=== PATIENT | male | born 1940 | race Two or more races ===

== ENCOUNTER 2018-12-07 09:18 | Inpatient (IN) | payer MEDICARE ==
[~2018-12-07] VITALS: Ht 188 cm; Wt 74.8 kg
--- NOTE | 2018-12-07 09:30 | NUR ---
DOC [place] 102 FROM [facility] FOR ALOC/Fever BS-[id number] LKWT yesterday". PT O2 SAT AT 69% ON ROOM AIR IN THE FACILITY UPON PARAMEDICS ARRIVAL, PT CAME IN ON NON-REBREATHER MASK AT 15LPM, O2 SAT 93%, TO ER BED 8, PT AROUSABLE BY PAINFUL STIMULI. DR VINSON AT BEDSIDE, HOOKED TO NETWORK SECURITY CONSULTANT, IVP STARTED AT R AND L FOREARM 18G, BLOOD DRAWN AND SENT TO LAB. NOTED W PRIMITIVO CATHETER ON R CHEST. COOLING MEASURES DONE.
[2018-12-07 09:35] LABS: BASOPHILS # (AUTO) 0.4 /CMM (0.0-0.2); BASOPHILS % (AUTO) 2.3 % (0.0-2.0); EOSINOPHILS % (AUTO) 0.1 % (0.0-6.0); HEMATOCRIT 24 % (39-51); HEMOGLOBIN 7.4 g/dL (13.5-17.5); LYMPHOCYTES # (AUTO) 0.9 /CMM (0.8-4.8); MEAN CORPUSCULAR HGB CONC 30 g/dl (31.0-36.0); MEAN CORPUSCULAR VOLUME 101 fL (80-96); MONOCYTES # (AUTO) 0.7 /CMM (0.1-1.30); MONOCYTES % (AUTO) 4.3 % (2.0-12.0); NEUTROPHILS # (AUTO) 13.7 /CMM (1.8-8.9); NEUTROPHILS % (AUTO) 87.3 % (43.0-81.0); PLATELET COUNT (AUTO) 224 /CMM (150-450); RED BLOOD CELL COUNT(AUTO) 2.41 MIL/uL (4.5-6.0); WHITE BLOOD COUNT (AUTO) 15.6 K/uL (4.3-11.0)
[2018-12-07] MEDS ORDERED: ACETAMINOPHEN 650 MG/SUPP.RECT RC ONE ×2 (09:39→10:00)
[2018-12-07 09:40] LABS: CALCIUM, SERUM 7.9 mg/dL (8.5-10.1); CARBON DIOXIDE 25 mmol/L (21-32); CHLORIDE 104 mmol/L (98-107); CREATININE 2.6 mg/dL (0.6-1.3); GLUCOSE 123 mg/dL (74-106); POTASSIUM 3.7 mmol/L (3.5-5.1); SODIUM SERUM 141 mmol/L (136-145); UREA NITROGEN, BLOOD 20 mg/dL (7-18)
[2018-12-07] MEDS ORDERED: BISA10SU8 RC (09:43)
[2018-12-07] MEDS ORDERED: FINA5TAB11 PO (09:43)
[2018-12-07] MEDS ORDERED: CYAN10009 PO (09:43)
[2018-12-07] MEDS ORDERED: PANT40TA4 PO (09:43)
[2018-12-07] MEDS ORDERED: POLY15DR40 EACHEYE (09:43)
[2018-12-07] MEDS ORDERED: AMIN30LI27 PO (09:43)
[2018-12-07] MEDS ORDERED: POLY17PO4 PO (09:43)
[2018-12-07] MEDS ORDERED: ASPI-1169 PO (09:43)
[2018-12-07] MEDS ORDERED: ACET-868 PO (09:43)
[2018-12-07] MEDS ORDERED: TICA90TA PO (09:43)
[2018-12-07] MEDS ORDERED: BLOO-668 IN (09:43)
[2018-12-07] MEDS ORDERED: CARV12.52 PO (09:43)
[2018-12-07] MEDS ORDERED: GABA-534 PO (09:43)
[2018-12-07] MEDS ORDERED: MAGN400O6 PO (09:43)
[2018-12-07] MEDS ORDERED: ATOR40TA PO (09:43)
[2018-12-07] MEDS ORDERED: ASCO500T9 PO (09:43)
[2018-12-07] MEDS ORDERED: SACC250C PO (09:43)
[2018-12-07] MEDS ORDERED: DOCU-141 PO (09:43)
[2018-12-07] MEDS ORDERED: FOLI0.8T23 PO (09:43)
[2018-12-07] MEDS ORDERED: ACET-2605 PO ×2 (09:43)
[2018-12-07] MEDS ORDERED: INSU100V11 SQ (09:43)
[2018-12-07] MEDS ORDERED: NA P133E RC (09:43)
[2018-12-07 09:46] LABS: ALANINE AMINOTRANSFERASE 22 U/L (12-78); ALKALINE PHOSPHATASE 240 U/L (46-116); ASPARTATE AMINOTRANSFERASE 38 U/L (15-37); BILIRUBIN,DIRECT 0.3 mg/dL (0.0-0.2); BILIRUBIN,TOTAL 0.7 mg/dL (0.2-1.0); TOTAL PROTEIN, SERUM 6.3 g/dL (6.4-8.2)
[2018-12-07 09:52] LABS: ALBUMIN 1.2 g/dL (3.4-5.0)
--- NOTE | 2018-12-07 10:12 | NUR ---
got bed 323-1
--- NOTE | 2018-12-07 10:57 | NUR ---
REPORT GIVEN TO CHERI RON OF TELE UNIT
--- NOTE | 2018-12-07 11:15 | NUR ---
[facility]ED [facility]. DRAG CAR RACER WAS PAGED
[2018-12-07] MEDS ORDERED: VANCOMYCIN 1 GM in IV D5W 250 ML IV ONE (11:30)
[2018-12-07] MEDS ORDERED: VANCOMYCIN 1 GM VIAL ONE (11:31)
[2018-12-07] MEDS ORDERED: PIPERACILLIN /TAZOBACTAM 3.375 G VIAL IV ONE (11:31)
[2018-12-07] MEDS ORDERED: PIPERACILLIN /TAZOBACTAM 3.375 G in IV D5W 50 ML IV SCH (12:00)
--- NOTE | 2018-12-07 12:15 | NUR ---
RN MS OPENING NOTES Patient received at this time, patient's Right and Left FA #[id number] IV patent, IJ permacath in place. vital signs stable, patient has no s/s of pain. Patient's photo of wounds taken, and printed. In patients chart. Bed at the lowest setting, call light within reach. Patient is with family member bed side.
[2018-12-07] MEDS ORDERED: DEXTROSE 50%-WATER 50 ML DISP.SYRIN IV PRN (14:30)
[2018-12-07] MEDS ORDERED: ACETAMINOPHEN 325 MG TABLET PO PRN (14:30)
[2018-12-07] MEDS ORDERED: Z GUARD REMEDY 2 OZ OINT TP PRN (14:30)
[2018-12-07] MEDS ORDERED: HYDROCODONE/APAP 5/325MG 1 EACH TABLET PO PRN (14:30)
[2018-12-07] MEDS ORDERED: MAGNESIUM HYDROXIDE 30 ML UDC PO PRN (14:30)
[2018-12-07] MEDS ORDERED: MORPHINE SULFATE INJ 2 MG/ML DISP.SYRIN IV PRN (14:30)
[2018-12-07] MEDS ORDERED: MAG HYDROX/AL HYDROX/SIMETH 30 ML UDC PO PRN (14:30)
[2018-12-07] MEDS ORDERED: ONDANSETRON HCL/PF 4 MG/2 ML VIAL IVP PRN (14:30)
[2018-12-07] MEDS ORDERED: ZOLPIDEM TARTRATE 5 MG TABLET PO PRN (14:30)
--- NOTE | 2018-12-07 15:12 | NUR ---
RN MS NOTES Patient's family refuses carey catheter at this time. Patient's family stated that they are not comfortable at this time.
[2018-12-07] MEDS ORDERED: VANCOMYCIN POST DIALYSIS 500MG IV PRN ×2 (15:30)
[2018-12-07] MEDS ORDERED: FEE PK DOSING 1 MIN EA MC ONE (15:31)
[2018-12-07 16:00] VITALS: BP 94/51
[2018-12-07] MEDS: IV D5/0.45 NACL 1,000 ML IV PRN (16:38)
[2018-12-07] MEDS: FAMOTIDINE/PF INJ 20 MG/2 ML VIAL IV SCH (16:42)
[2018-12-07] MEDS: BLOOD SUGAR DIAGNOSTIC 1 EACH STRIP IN SCH (17:07)
[2018-12-07] MEDS: INSULIN REGULAR, HUMAN 100 UNIT/ML 3 ML VIAL SQ PRN (17:13)
--- NOTE | 2018-12-07 17:55 | NUR ---
RN MS CLOSING NOTES Patient remains on 4L nasal cannula, no sob noted. patient remains a/o x 0. No s/s of pain at this time. Patient remains with left and right forearm IV #18, patent. Patients family member refused insertion of dr calin carey. Bed at the lowest setting, call light within reach, fall precautions in place, will give report to NILS RN for MARY bedside.
--- NOTE | 2018-12-07 19:50 | NUR ---
MS/RN OPENING NOTES RECEIVED PATIENT IN BED, RESTING COMFORTABLY IN BED, PATIENT ABLE TO RESPOND WITH TOUCH BUT REQUIRE EXTENSIVE ASSISTANCE WITH ALL NEEDS. CAN OPEN EYES. ON DIAPER,ON NPO STATUS, WILL MONITOR FOR ANY CHANGES, RECEIVED ENDORSEMENT FROM AM RN FOR MARY. BED LOCKED, CALL LIGHTS WITHIN REACH. WILL MONITOR.
[2018-12-07 20:00] VITALS: BP 112/52
[2018-12-07] MEDS: PIPERACILLIN /TAZOBACTAM 2.25 G in IV D5W 50 ML IV SCH (20:52)
[2018-12-08] VITALS (7 sets, daily range): BP systolic 93–107; BP diastolic 36–54
[2018-12-08] MEDS: BLOOD SUGAR DIAGNOSTIC 1 EACH STRIP IN SCH ×5 (00:05→23:15)
[2018-12-08] MEDS: INSULIN REGULAR, HUMAN 100 UNIT/ML 3 ML VIAL SQ PRN ×4 (00:13→23:23)
[2018-12-08] MEDS: PIPERACILLIN /TAZOBACTAM 2.25 G in IV D5W 50 ML IV SCH ×3 (04:04→20:25)
[2018-12-08] MEDS: IV D5/0.45 NACL 1,000 ML IV PRN ×2 (04:05→19:45)
--- NOTE | 2018-12-08 06:30 | NUR ---
MS/RN NOTES ENDORSEMENT GIVEN TO AM RN FOR MARY.
[2018-12-08 08:11] LABS: BASOPHILS % (AUTO) 0.2 % (0.0-2.0); EOSINOPHILS % (AUTO) 0.4 % (0.0-6.0); HEMATOCRIT 23 % (39-51); LYMPHOCYTES # (AUTO) 0.9 /CMM (0.8-4.8); LYMPHOCYTES % (AUTO) 8.6 % (20.0-44.0); MEAN CORPUSCULAR HGB CONC 30 g/dl (31.0-36.0); MEAN CORPUSCULAR VOLUME 102 fL (80-96); MONOCYTES # (AUTO) 0.5 /CMM (0.1-1.30); MONOCYTES % (AUTO) 4.5 % (2.0-12.0); NEUTROPHILS # (AUTO) 8.9 /CMM (1.8-8.9); NEUTROPHILS % (AUTO) 86.3 % (43.0-81.0); PLATELET COUNT (AUTO) 187 /CMM (150-450); RED BLOOD CELL COUNT(AUTO) 2.27 MIL/uL (4.5-6.0); WHITE BLOOD COUNT (AUTO) 10.3 K/uL (4.3-11.0)
--- NOTE | 2018-12-08 08:20 | NUR ---
RECEIVED CALL REGARDING BLOOD CULTURE RESULTS FROM NANCY @ [facility] MICROBIOLOGY AND CRITICAL HGB FROM SANDI @ LAB, DR. FULLER AWARE
[2018-12-08 08:22] LABS: CALCIUM, SERUM 7.8 mg/dL (8.5-10.1); CARBON DIOXIDE 23 mmol/L (21-32); CHLORIDE 104 mmol/L (98-107); CREATININE 3.3 mg/dL (0.6-1.3); GLUCOSE 159 mg/dL (74-106); MAGNESIUM 1.6 mg/dL (1.8-2.4); PHOSPHORUS 1.9 mg/dL (2.5-4.9); POTASSIUM 3.5 mmol/L (3.5-5.1); SODIUM SERUM 138 mmol/L (136-145); UREA NITROGEN, BLOOD 33 mg/dL (7-18)
--- NOTE | 2018-12-08 08:45 | NUR ---
PATIENT SEEN BY FNS. DUE TO BEING UNAROUSABLE, SWALLOW EVAL NOT POSSIBLE AT THIS TIME.
[2018-12-08] MEDS ORDERED: PANTOPRAZOLE 40 MG VIAL IV SCH (09:00)
--- NOTE | 2018-12-08 09:10 | NUR ---
PATIENT TAKEN TO CT
[2018-12-08] MEDS: FAMOTIDINE/PF INJ 20 MG/2 ML VIAL IV SCH ×2 (09:23→17:47)
--- NOTE | 2018-12-08 10:27 | NUR ---
WOUND CARE CONSULT: PT SEEN FOR SKIN ASSESSMENT AND NOTED TO HAVE HUGE SACRAL ULCER, STAGE 4 WITH FOUL PURULENT DRAINAGE AND NECROTIC TISSUE, DEEP TISSUE INJURY TO PERIWOUND AREA WELL PURPLE AND BLACK DRY WOUNDS TO BILATERAL FEET AND HEELS, LOWER LEGS, PRESENT ON ADMISSION. PT NOTED TO BE THIN AND BONY AND IS INCONTINENT. DIETARY CONSULT IN PLACE. SURGICAL CONSULT AND DPM CONSULTS REQUESTED. DR MICHAEL HERNANDEZ AND DR ROONEY NOTIFIED OF SURGICAL AND DPM CONSULT REQUESTS. FIRST STEP LOW AIRLOSS MATTRESS ORDERED. PT IS IMMOBILE WITH CURRENT [place] SCORE OF 7. WOUND CARE AND SKIN PROTECTION RECOMMENDATIONS DISCUSSED WITH NURSING STAFF. WILL SEE PRN. IN AGREEMENT WITH PLAN OF CARE.
[2018-12-08] MEDS ORDERED: EPOETIN ALFA (10,000 UNIT) 10,000 UNIT/ML VIAL IV SCH (13:00)
[2018-12-08] MEDS ORDERED: LIDOCAINE 1% INJ 50 ML MDV IJ ONE (17:00)
[2018-12-08] MEDS ORDERED: SILVER NITRATE APPLICATOR 1 EA BOX TP ONE (17:00)
[2018-12-08] MEDS: DAKINS HALF STRENGTH (0.25%) 480 ML BOTTLE TOP SCH (17:47)
[2018-12-08] MEDS ORDERED: VANCOMYCIN 1 GM in IV D5W 250 ML IV ONE ×4 (18:00)
--- NOTE | 2018-12-08 18:00 | NUR ---
SHIFT SUMMARY: PATIENT WAS SEEN BY FNS, WOUND CARE AND DR. HERNANDEZ. RECEIVED DIALYSIS (0mL OUT, CLEANING ONLY) AND 1 UNIT RBC WITH DIALYSIS (TOLERATED WELL). MD FULLER AWARE OF CRITICAL ALBUMIN.
--- NOTE | 2018-12-08 19:05 | NUR ---
MS/RN PM OPENING NOTES BEDSIDE REPORT RECEIVED FROM MIKE RON PATIENT IN BED, RESTING IN BED, PATIENT RESPONDS TO TOUCH BUT IS MAX ASSISTANCE WITH ALL NEEDS. OPENS EYES TO PAINFUL STIMULI. NPO STATUS, WILL MONITOR FOR ANY CHANGES, BED LOCKED, DOWN, SRX3, CALL LIGHT WITHIN REACH. PATIENT RECIEVED HD TODAY FOR CLEAN UP. PER REPORT FC INSERTION WAS REFUSED BY FAMILY EARILER. IVF INFUSING TO RIGHT HAND #18 WITH NO S/S OF INFILTRATION.
--- NOTE | 2018-12-08 20:35 | NUR ---
excisional debridement of sacral ulcer Dr. kt Stovall at the bedside. to perform excisional debridement of sacral ulcer. time out performed patient verified. consent verified. procedure proceeded.
--- NOTE | 2018-12-08 20:55 | NUR ---
excisional debridement of sacral ulcer completed. procedure completed. patient tolerated procedure well. sacral tissue and a piece of sacral bone obtained and to be taken to lab with wound culture. picture of debrided wound taken and placed on the chart. wound packed with kerlix and dakins solution by dr. bajwa. dressing cover applied to sacral area. patient repositioned in bed. breathing is even and unlabored. patient appears to be in mild comfort while moving but does not exhibit any moaning or crying while resting in bed. bed down locked sr x3 iv infuing without complication to right hand. a
[2018-12-09] MEDS: PIPERACILLIN /TAZOBACTAM 2.25 G in IV D5W 50 ML IV SCH ×2 (05:07→13:36)
[2018-12-09] MEDS: BLOOD SUGAR DIAGNOSTIC 1 EACH STRIP IN SCH ×3 (05:10→21:02)
[2018-12-09] MEDS: INSULIN REGULAR, HUMAN 100 UNIT/ML 3 ML VIAL SQ PRN ×3 (05:12→12:43)
--- NOTE | 2018-12-09 06:14 | NUR ---
rn pm closing note. patient in no apparent distress on air mattress. sill only responsive to light pain. ivf infusing to right wrist with no s/s of copmlications. bed down locked safety measures in place on air mattress. will cont to monitor and endorse to day shift for armond.
[2018-12-09 06:20] LABS: BASOPHILS % (AUTO) 0.2 % (0.0-2.0); EOSINOPHILS % (AUTO) 0.3 % (0.0-6.0); HEMATOCRIT 24 % (39-51); HEMOGLOBIN 7.6 g/dL (13.5-17.5); LYMPHOCYTES # (AUTO) 0.8 /CMM (0.8-4.8); LYMPHOCYTES % (AUTO) 10.1 % (20.0-44.0); MEAN CORPUSCULAR HGB CONC 32 g/dl (31.0-36.0); MEAN CORPUSCULAR VOLUME 99 fL (80-96); MONOCYTES # (AUTO) 0.4 /CMM (0.1-1.30); MONOCYTES % (AUTO) 5.1 % (2.0-12.0); NEUTROPHILS # (AUTO) 6.6 /CMM (1.8-8.9); NEUTROPHILS % (AUTO) 84.3 % (43.0-81.0); PLATELET COUNT (AUTO) 162 /CMM (150-450); WHITE BLOOD COUNT (AUTO) 7.8 K/uL (4.3-11.0)
[2018-12-09 06:38] LABS: CALCIUM, SERUM 7.7 mg/dL (8.5-10.1); CARBON DIOXIDE 25 mmol/L (21-32); CHLORIDE 104 mmol/L (98-107); CREATININE 2.6 mg/dL (0.6-1.3); GLUCOSE 207 mg/dL (74-106); MAGNESIUM 1.6 mg/dL (1.8-2.4); PHOSPHORUS 1.2 mg/dL (2.5-4.9); POTASSIUM 3.3 mmol/L (3.5-5.1); SODIUM SERUM 138 mmol/L (136-145); UREA NITROGEN, BLOOD 32 mg/dL (7-18)
[2018-12-09 07:04] LABS: FERRITIN 3320 ng/mL (8-388)
--- NOTE | 2018-12-09 07:30 | NUR ---
RN AM SHIFT NOTE PATIENT IN BED RESPONSIVE TO PAINFUL STIMULI ONLY. IV PATENT AND INTACT. BED IN LOW POSITION, SAFETY PRECAUTIONS IN PLACE. NIGHT NURSE ENDORSED WOUND DR SHOULD COME BY TODAY TO ASSESS LOWER EXTREMITY WOUNDS. BILATERAL LEG SPLINTS ARE ON, PEDAL PULSES PRESENT BUT DIMINISHED. OXYGEN ON. CONTINUE TO MONITOR.
[2018-12-09 07:32] LABS: IRON, SERUM 14 ug/dl (50-175); TOTAL IRON BINDING CAPACITY 33 ug/dl (250-450)
[2018-12-09 08:00] VITALS: BP 113/62
[2018-12-09] MEDS: FAMOTIDINE/PF INJ 20 MG/2 ML VIAL IV SCH ×2 (08:32→17:15)
[2018-12-09] MEDS: DAKINS HALF STRENGTH (0.25%) 480 ML BOTTLE TOP SCH (08:45)
--- NOTE | 2018-12-09 09:45 | NUR ---
PHONE CIRCUIT OPERATOR NOTE CRITICAL LABS REPORTED TO HOSPITALIST. PATIENT IS MD ERNA AWARE DNR, AWAITING POSSIBLE NEW ORDERS AT THIS TIME.
[2018-12-09] MEDS: IV D5/0.45 NACL 1,000 ML IV PRN (11:15)
[2018-12-09] MEDS: Magnesium 1GM/D5W 100ML PREMIX 100 ML IV SCH ×2 (12:48→13:32)
[2018-12-09] MEDS ORDERED: Sodium Phosphate 7.5 MMOL in IV D5W 100 ML IV ONE (13:00)
[2018-12-09 16:00] VITALS: BP 100/52
[2018-12-09] MEDS: MEROPENEM 500 MG in IV NS 0.9% 50 ML IV SCH (21:02)
--- NOTE | 2018-12-09 21:03 | NUR ---
ACCUCHECK MISSED DOSE PAST DUE. SCHEDULED FOR 6PM.
[2018-12-09 22:00] VITALS: BP 122/47
[2018-12-10] MEDS: BLOOD SUGAR DIAGNOSTIC 1 EACH STRIP IN SCH ×4 (00:29→17:50)
[2018-12-10] MEDS: INSULIN REGULAR, HUMAN 100 UNIT/ML 3 ML VIAL SQ PRN ×4 (00:29→18:04)
[2018-12-10] MEDS: IV D5/0.45 NACL 1,000 ML IV PRN (03:38)
--- NOTE | 2018-12-10 07:43 | NUR ---
MS RN OPENING NOTES PATIENT IN BED RESTING, BREATHING ON OXYGEN NC 2L >95% SPO2. PATIENT BREATHING IS EVEN AND UNLABORED. PATIENT IN NO ACUTE DISTRESS. NO SOB NOTED. NO FACIAL GRIMACING AT THIS TIME. PATIENT BED IS LOCKED AND IN LOWEST POSITION. CALL LIGHT WITHIN REACH. SAFETY PRECAUTIONS IN PLACE. WILL CONTINUE TO MONITOR.
[2018-12-10 08:00] VITALS: BP 104/52
[2018-12-10 08:44] LABS: CALCIUM, SERUM 7.8 mg/dL (8.5-10.1); CARBON DIOXIDE 23 mmol/L (21-32); CHLORIDE 103 mmol/L (98-107); CREATININE 3.2 mg/dL (0.6-1.3); GLUCOSE 192 mg/dL (74-106); MAGNESIUM 1.9 mg/dL (1.8-2.4); PHOSPHORUS 1.8 mg/dL (2.5-4.9); POTASSIUM 3.4 mmol/L (3.5-5.1); SODIUM SERUM 136 mmol/L (136-145); UREA NITROGEN, BLOOD 43 mg/dL (7-18)
[2018-12-10] MEDS: MEROPENEM 500 MG in IV NS 0.9% 50 ML IV SCH (08:55)
[2018-12-10] MEDS: DAKINS HALF STRENGTH (0.25%) 480 ML BOTTLE TOP SCH (08:57)
[2018-12-10] MEDS: FAMOTIDINE/PF INJ 20 MG/2 ML VIAL IV SCH ×2 (08:58→17:49)
[2018-12-10 11:14] LABS: BASOPHILS % (AUTO) 0.1 % (0.0-2.0); EOSINOPHILS % (AUTO) 1.1 % (0.0-6.0); HEMATOCRIT 24 % (39-51); HEMOGLOBIN 7.5 g/dL (13.5-17.5); LYMPHOCYTES # (AUTO) 0.7 /CMM (0.8-4.8); LYMPHOCYTES % (AUTO) 8.5 % (20.0-44.0); MEAN CORPUSCULAR HGB CONC 32 g/dl (31.0-36.0); MEAN CORPUSCULAR VOLUME 99 fL (80-96); MONOCYTES # (AUTO) 0.3 /CMM (0.1-1.30); MONOCYTES % (AUTO) 3.9 % (2.0-12.0); NEUTROPHILS # (AUTO) 7.2 /CMM (1.8-8.9); NEUTROPHILS % (AUTO) 86.4 % (43.0-81.0); PLATELET COUNT (AUTO) 124 /CMM (150-450); WHITE BLOOD COUNT (AUTO) 8.3 K/uL (4.3-11.0)
[2018-12-10] MEDS ORDERED: EPOETIN ALFA (10,000 UNIT) 10,000 UNIT/ML VIAL IV ONE (13:00)
[2018-12-10] MEDS ORDERED: Sodium Phosphate 7.5 MMOL in IV D5W 100 ML IV ONE (14:00)
[2018-12-10 16:00] VITALS: BP 108/54
--- NOTE | 2018-12-10 19:05 | NUR ---
MS RN NOTE RECEIVED PT IN STABLE CONDITION, NON-VERBAL, RESPOND TO PAIN. CURRENTLY RESTING IN BED. NO SIGNS OF SOB OR DISTRESS, NO INDICATIONS OF PAIN. IV IN R HAND, IN PLACE WITH IVF INFUSING. ALL CURRENT NEEDS MET. BED LOW, LOCKED UPPER RAILS UP, AND CALL LIGHT WITHIN REACH. WILL CONT. TO MONITOR.
--- NOTE | 2018-12-10 19:14 | NUR ---
MS RN CLOSING NOTE PATIENT IN BED RESTING, BREATHING ON OXYGEN 2L NC. PATIENT BREATHING IS EVEN AND UNLABORED. PATIENT IN NO ACUTE DISTRESS. NO SOB NOTED. PATIENT RESPONSIVE TO PAINFUL STIMULI. PATIENT IVS INTACT. PATIENT RECEIVED DIALYSIS TODAY, PER MD CLEAN BLOOD OUT ONLY NO OUTPUT. PATIENT WAS KEPT CLEAN, DRY, COMFORTABLE AND REPOSITIONED DURING MY SHIFT. WOUND CARE ORDERED PERFORMED. PATIENT BED IS LOCKED AND IN LOWEST POSITION. CALL LIGHT WITHIN REACH. ENDORSED CARE TO PM SHIFT FOR MARY.
--- NOTE | 2018-12-10 20:05 | NUR ---
MS RN NOTE CALLED TO ROOM BY LINUX ARCHITECT, PER LINUX ARCHITECT PT. UNAROUSABLE TO VERBAL AND TACTILE STIMULI, AND UNABLE TO OBTAIN VS. ASSESSED PT FOR VERBAL AND TACTILE STIMULI STILL UNAROUSABLE, CHECKED CAROTID AND RADIAL NO PULSES FOUND, BILATERAL PUPILS DILATED. PT NOTED TO BE DNR PER MD NOTES. NOTIFIED CHARGE NURSE ARELI, PT [address]. CALLED DR. ALAS SUPERVISOR BLAST FURNACE, AWAITING TO NOTIFY OF EXPIRATION.
--- NOTE | 2018-12-10 20:18 | NUR ---
MS RN NOTE NOTIFIED JW (SON) OF PT EXPIRATION. STATES HE WILL RETURN CALL FOR ARRANGEMENTS.
--- NOTE | 2018-12-10 21:31 | NUR ---
MS RN NOTE F/U WITH JW (SON) FOR ARRANGEMENTS, HE IS STILL TRYING TO FIND THE NECESSARY PAPERWORK. THEY WILL NOT BE COMING TO [facility] TO SEE THE PATIENT.
== END 2018-12-10 20:10 | disposition expired | DRG 981 ==
LOC: ER 09:18 → MED 11:12
PROVIDERS: ADMIT Student in an Organized Health Care Education/Training Program; ATTEND Internal Medicine
PROC: 5A1D70Z Performance of Urinary Filtration, Intermittent, Less than 6 Hours Per Day (ICD-10-PCS; 2018-12-07)
PROC: 0QBS0ZZ Excision of Coccyx, Open Approach (ICD-10-PCS; principal; 2018-12-08)
PROC: 0QB10ZZ Excision of Sacrum, Open Approach (ICD-10-PCS; 2018-12-08)
PROC: 30233N1 Transfusion of Nonautologous Red Blood Cells into Peripheral Vein, Percutaneous Approach (ICD-10-PCS; 2018-12-08)
DX: T80.211A Bloodstream infection due to central venous catheter, initial encounter (principal); A41.9 Sepsis, unspecified organism; L89.154 Pressure ulcer of sacral region, stage 4; E43 Unspecified severe protein-calorie malnutrition; N18.6 End stage renal disease; G92 Toxic encephalopathy; J96.01 Acute respiratory failure with hypoxia; J15.6 Pneumonia due to other Gram-negative bacteria; R65.20 Severe sepsis without septic shock; I13.2 Hypertensive heart and chronic kidney disease with heart failure and with stage 5 chronic kidney disease, or end stage renal disease; I50.22 Chronic systolic (congestive) heart failure; N39.0 Urinary tract infection, site not specified; E11.52 Type 2 diabetes mellitus with diabetic peripheral angiopathy with gangrene; M46.28 Osteomyelitis of vertebra, sacral and sacrococcygeal region; I96 Gangrene, not elsewhere classified; L02.212 Cutaneous abscess of back [any part, except buttock and flank]; R13.10 Dysphagia, unspecified; Z99.2 Dependence on renal dialysis; E11.22 Type 2 diabetes mellitus with diabetic chronic kidney disease; I25.10 Atherosclerotic heart disease of native coronary artery without angina pectoris; Y84.8 Other medical procedures as the cause of abnormal reaction of the patient, or of later complication, without mention of misadventure at the time of the procedure; Y92.129 Unspecified place in nursing home as the place of occurrence of the external cause; R74.0 Nonspecific elevation of levels of transaminase and lactic acid dehydrogenase [LDH]; D63.8 Anemia in other chronic diseases classified elsewhere; D63.1 Anemia in chronic kidney disease; E11.69 Type 2 diabetes mellitus with other specified complication; E11.42 Type 2 diabetes mellitus with diabetic polyneuropathy; E83.39 Other disorders of phosphorus metabolism; E83.42 Hypomagnesemia; F43.10 Post-traumatic stress disorder, unspecified; G40.909 Epilepsy, unspecified, not intractable, without status epilepticus; Z66 Do not resuscitate; Z74.01 Bed confinement status; Z86.73 Personal history of transient ischemic attack (TIA), and cerebral infarction without residual deficits; N40.1 Benign prostatic hyperplasia with lower urinary tract symptoms; B96.20 Unspecified Escherichia coli [E. coli] as the cause of diseases classified elsewhere; B96.4 Proteus (mirabilis) (morganii) as the cause of diseases classified elsewhere; Z16.12 Extended spectrum beta lactamase (ESBL) resistance; E88.09 Other disorders of plasma-protein metabolism, not elsewhere classified; Z68.21 Body mass index [BMI] 21.0-21.9, adult; L89.890 Pressure ulcer of other site, unstageable
CPT/HCPCS: 36415; 70450-TC; 71045-TC; 73590-TC; 73610-TC; 73630-TC; 80048-TC; 80076-TC; 80202-TC; 82728-TC; 82962-TC; 83540-TC; 83605-TC; 83735-TC; 84100-TC; 85025-TC; 85730-TC; 86706; 86850-TC; 86921-TC; 87040-TC; 87070-TC; 87081-TC; 87186-TC; 87340; 88304-TC; 88305-TC; 88311-TC; 88312-TC; 90935-TC; A4216; A6253; A9563; G0378; J0885; J1815; J2185; J2543; J3370; J3475; J3490; J7060; P9016-BL